=== PATIENT | female | born 1965 | race Caucasian/White ===

== ENCOUNTER 2022-07-30 07:30 | Inpatient (IN) ==
[~2022-07-30 07:30] MED LIST: ANCEF VIAL 1 GRAM ONE; HEPARIN SODIUM IN D5W 75,000 UNITS/1,500 ML BAG ONE; LR 1,000 ML IV 1,000 ML IV ONE; MARCAINE 0.5% ONE; NS 100 ML IV 100 ML ONE; PEPCID 20 MG VIAL ONE; VERSED ONE; ZOFRAN INJ 4 MG VIAL ONE
[2022-07-30] MEDS ORDERED: DIPRIVAN VIAL 20 ML ONE (07:43)
[2022-07-30] MEDS ORDERED: KETAMINE HCL ONE (07:44)
[2022-07-30] MEDS ORDERED: QUELICIN (OR ANECTINE) ONE (07:44)
[2022-07-30] MEDS ORDERED: ZEMURON 100 MG VIAL ONE (07:44)
[2022-07-30] MEDS ORDERED: FENTANYL VIAL INJ 250 mcg ONE (07:45)
[2022-07-30] MEDS ORDERED: ULTANE GAS IN ONE (07:46)
[2022-07-30] MEDS ORDERED: ROBINUL ONE ×2 (08:07→08:42)
[2022-07-30] MEDS ORDERED: NEO-SYNEPHRINE INJ ONE (08:14)
[2022-07-30] MEDS ORDERED: MAGNESIUM SULFATE 50% INJ VIAL ONE (08:14)
[2022-07-30] MEDS ORDERED: LR 1,000 ML IV 1,000 ML IV ONE (09:15)
[2022-07-30] MEDS ORDERED: VASOSTRICT INJ 20 UNITS VIAL ONE (09:16)
[2022-07-30] MEDS ORDERED: EPHEDRINE SULFATE INJ ONE (09:16)
[2022-07-30] MEDS ORDERED: HEPARIN SODIUM INJ 5000 UNITS ONE ×2 (09:36→10:43)
[2022-07-30 10:02] LABS: HEMATOCRIT 31.4 % (36.0-47.0); HEMOGLOBIN 10.4 g/dL (12.0-16.0)
[2022-07-30] MEDS ORDERED: NS 500 ML IV 500 ML IV ONE ×3 (10:06→13:34)
[2022-07-30] MEDS ORDERED: SOLU-Cortef INJ ONE (10:18)
[2022-07-30] MEDS ORDERED: BENADRYL INJ 50 MG VIAL ONE (10:22)
[2022-07-30] MEDS ORDERED: ANCEF VIAL 1 GRAM ONE (11:32)
[2022-07-30] MEDS ORDERED: NS 100 ML IV 100 ML ONE ×2 (11:32→14:56)
[2022-07-30] MEDS ORDERED: NS 1,000 ML IV 1,000 ML ONE (11:34)
[2022-07-30 11:38] LABS: BASOPHILS # (AUTO) 0.1 X10^3/uL (0.0-0.1); BASOPHILS % (AUTO) 0.3 % (0.2-1.0); EOSINOPHILS % (AUTO) 0.1 % (0.9-2.9); HEMATOCRIT 29.2 % (36.0-47.0); HEMOGLOBIN 9.5 g/dL (12.0-16.0); LYMPHOCYTES # (AUTO) 2.2 X10^3/uL (1.3-2.9); LYMPHOCYTES % (AUTO) 9.4 % (21.0-51.0); MEAN CORPUSCULAR HEMOGLOBIN 28.6 pg (27.0-34.0); MEAN CORPUSCULAR HGB CONC 32.6 g/dL (33.0-35.0); MEAN CORPUSCULAR VOLUME 87.7 fL (80.0-100.0); MEAN PLATELET VOLUME 7.6 fL (7.4-11.0); MONOCYTES # (AUTO) 0.5 x10^3/uL (0.3-0.8); MONOCYTES % (AUTO) 2.2 % (0.0-13.0); NEUTROPHILS # (AUTO) 20.3 x10^3/uL (2.2-4.8); RED BLOOD COUNT 3.33 X10^6/uL (3.5-5.4); RED CELL DISTRIBUTION WIDTH 26.3 % (11.6-16.5); WHITE BLOOD COUNT 23.1 X10^3/uL (3.6-10.0)
[2022-07-30] MEDS ORDERED: VERSED ONE ×3 (11:44→14:56)
[2022-07-30 11:50] LABS: CALCIUM 6.2 mg/dL (8.5-10.1); CARBON DIOXIDE 19.1 mmol/L (21-32); CREATININE 1.2 mg/dL (0.55-1.02)
[2022-07-30] MEDS: LEVOPHED 8 MG/250 ML IV *PREMIX 8 MG/250 ML PLAST..BAG IV PRN ×3 (12:00→21:22)
[2022-07-30] MEDS: NEO-SYNEPHRINE INJ 30 MG in NS 500 ML IV 500 ML IV PRN ×4 (12:00→21:09)
[2022-07-30 12:02] LABS: BAND NEUTROPHILS % 4 % (0-10); PLATELET MORPHOLOGY COMMENT NORMAL (NORMAL)
[2022-07-30 12:03] LABS: ANISOCYTOSIS 3+; BURR CELLS SLIGHT
[2022-07-30] MEDS ORDERED: ATIVAN INJ 2 MG VIAL IVP PRN (12:09)
[2022-07-30] MEDS ORDERED: BRIDION ONE (12:24)
[2022-07-30 12:57] LABS: INR 1.38 (0.8-1.3)
[2022-07-30 12:58] LABS: BASOPHILS % (AUTO) 0.2 % (0.2-1.0); EOSINOPHILS % (AUTO) 0.1 % (0.9-2.9); HEMATOCRIT 20.6 % (36.0-47.0); LYMPHOCYTES # (AUTO) 0.4 X10^3/uL (1.3-2.9); LYMPHOCYTES % (AUTO) 3.2 % (21.0-51.0); MEAN CORPUSCULAR HEMOGLOBIN 28.1 pg (27.0-34.0); MEAN CORPUSCULAR HGB CONC 32.5 g/dL (33.0-35.0); MEAN CORPUSCULAR VOLUME 86.5 fL (80.0-100.0); MEAN PLATELET VOLUME 7.7 fL (7.4-11.0); MONOCYTES # (AUTO) 0.4 x10^3/uL (0.3-0.8); MONOCYTES % (AUTO) 3.2 % (0.0-13.0); NEUTROPHILS # (AUTO) 11.3 x10^3/uL (2.2-4.8); NEUTROPHILS % (AUTO) 93.3 % (42.0-75.0); RED BLOOD COUNT 2.38 X10^6/uL (3.5-5.4); RED CELL DISTRIBUTION WIDTH 16.9 % (11.6-16.5)
[2022-07-30] MEDS ORDERED: NS 1,000 ML IV 1,000 ML IV ONE ×2 (13:02→16:17)
[2022-07-30 13:17] LABS: WHITE BLOOD COUNT 12.1 X10^3/uL (3.6-10.0)
--- NOTE | 2022-07-30 13:17 | RAD ---
HISTORYET TUBE PLACEMENTSTUDYCHEST, 1 [id number]/10/2023.TECHNIQUEPA or AP view of the chestFINDINGSET tube in good position. NG tube courses below the visualized field of view. Cardiac and mediastinal contours are within normal limits. Streaky linear opacities such as in the left upper and right lower lung consistent with subsegmental atelectasis. No definite pleural effusion or pneumothorax. Soft tissue attenuation limits evaluation.IMPRESSIONET tube in good position.Electronically signed by: Salvatore Sun (Jul 30, 2022 13:15:48)
[2022-07-30 13:18] LABS: HEMOGLOBIN 6.7 g/dL (12.0-16.0)
[2022-07-30 13:19] LABS: BURR CELLS PRESENT; PLATELET MORPHOLOGY COMMENT NORMAL (NORMAL); SCHISTOCYTES PRESENT
[2022-07-30] MEDS ORDERED: DILAUDID INJ ONE (13:26)
--- NOTE | 2022-07-30 13:26 | OR.IMMED ---
IMMEDIATE POST-OP NOTE Immediate Post-Op Note Pre-Op Diagnosis: 75 % stenosis of infrarenal aorta Post-Op Diagnosis: completely occluded infrarenal aorta over a very narrow segment Procedure: endovascular repair of infrarenal occlusion aorta complicated by rupture when it was balloon dilated , repaired with aortic endograft unilateral to right iliac artery and femoral femoral bypass. Description of Procedure: see operative summary Surgeon/Data Warehouse Specialist: Linh Findings: as above, post- procedure aortogram showed no further leak of the aorta Estimated Blood Loss: 50 cc f b/l open femoral artery exposures, guessing as to intra-abdominal loss probably 700 cc Complications: rupture of aorta requiring endovascular aortic graft and fem- fem bypass Progress Notes: To ICU , remains intubated for resuscitation Condition: Critical Final Diagnosis: s above
--- NOTE | 2022-07-30 13:49 | RAD ---
CHEST, 1 VIEWHISTORY: CENTRAL LINE PLACEMENTStudy: Single view of the chest.Comparison: 07/30/2022Findings:No change in the appearance of cardiopulmonary structures. A left central catheter terminates over the expected area of the SVC.IMPRESSION:1.No change in the appearance of cardiopulmonary structures.2. A left central catheter terminating over the expected area of the SVC.Electronically signed by: HIWOT SHEARER (Jul 30, 2022 13:48:31)
[2022-07-30] MEDS: VERSED 100 MG in NS 100 ML IV 80 ML IV PRN (15:20)
[2022-07-30] MEDS ORDERED: VERSED IV PREMIX IV PRN (16:04)
[2022-07-30] MEDS: LR 1,000 ML IV 1,000 ML IV SCH (16:30)
[2022-07-30 19:07] LABS: LYMPHOCYTES # (AUTO) 3.9 X10^3/uL (1.3-2.9); NEUTROPHILS # (AUTO) 25.9 x10^3/uL (2.2-4.8)
[2022-07-30 19:10] LABS: BASOPHILS # (AUTO) 0.2 X10^3/uL (0.0-0.1); BASOPHILS % (AUTO) 0.6 % (0.2-1.0); EOSINOPHILS % (AUTO) 0.1 % (0.9-2.9); HEMATOCRIT 38.3 % (36.0-47.0); HEMOGLOBIN 12.6 g/dL (12.0-16.0); LYMPHOCYTES % (AUTO) 12.1 % (21.0-51.0); MEAN CORPUSCULAR HEMOGLOBIN 29.3 pg (27.0-34.0); MONOCYTES # (AUTO) 2.3 x10^3/uL (0.3-0.8); MONOCYTES % (AUTO) 7.1 % (0.0-13.0); NEUTROPHILS % (AUTO) 80.1 % (42.0-75.0); RED BLOOD COUNT 4.31 X10^6/uL (3.5-5.4); RED CELL DISTRIBUTION WIDTH 22.9 % (11.6-16.5)
[2022-07-30 19:15] LABS: ALBUMIN 1.9 g/dL (3.4-5.0); CALCIUM 6.1 mg/dL (8.5-10.1); CARBON DIOXIDE 18.5 mmol/L (21-32); COR CA(FOR HYPOALB) 7.8 mg/dL (8.5-10.1); CREATININE 1.6 mg/dL (0.55-1.02); TOTAL PROTEIN 3.9 g/dL (6.4-8.2)
[2022-07-30 19:26] LABS: WHITE BLOOD COUNT 32.3 X10^3/uL (3.6-10.0)
[2022-07-30 19:28] LABS: ANISOCYTOSIS 2+; GIANT PLATELET FEW; PLATELET MORPHOLOGY COMMENT ABNORMAL (NORMAL)
[2022-07-30 19:29] LABS: BURR CELLS SLIGHT; SCHISTOCYTES SLIGHT
[2022-07-30 19:30] LABS: BAND NEUTROPHILS % 7 % (0-10); METAMYELOCYTES % 1; MYELOCYTES % 1
[2022-07-30] MEDS: ANCEF VIAL 1 GRAM IVP SCH (21:24)
[2022-07-30] MEDS ORDERED: DOPAMINE IV PREMIX 400 MG/250 ML 400 MG/250 ML BAG IV PRN (21:56)
[2022-07-30] MEDS: PRECEDEX IV PRN (22:40)
[2022-07-30] MEDS: PRECEDEX 400 MCG/100 ML *PREMIX 400 MCG/100 ML INFUS..BTL IV ONE ×2 (22:40→23:13)
[2022-07-30] MEDS: NS IV PRN (22:40)
[2022-07-31] MEDS: LR 1,000 ML IV 1,000 ML IV SCH ×2 (00:17→07:30)
[2022-07-31] MEDS: NEO-SYNEPHRINE INJ 30 MG in NS 500 ML IV 500 ML IV PRN ×5 (00:45→18:13)
[2022-07-31] MEDS: VERSED 100 MG in NS 100 ML IV 80 ML IV PRN ×2 (01:48→11:23)
[2022-07-31] MEDS: LEVOPHED 8 MG/250 ML IV *PREMIX 8 MG/250 ML PLAST..BAG IV PRN ×4 (01:49→18:12)
[2022-07-31 05:01] LABS: BASOPHILS # (AUTO) 0.1 X10^3/uL (0.0-0.1); BASOPHILS % (AUTO) 0.5 % (0.2-1.0); EOSINOPHILS % (AUTO) 0.1 % (0.9-2.9); HEMATOCRIT 36.7 % (36.0-47.0); HEMOGLOBIN 12.3 g/dL (12.0-16.0); LYMPHOCYTES # (AUTO) 4.4 X10^3/uL (1.3-2.9); LYMPHOCYTES % (AUTO) 17.4 % (21.0-51.0); MEAN CORPUSCULAR HGB CONC 33.5 g/dL (33.0-35.0); MEAN CORPUSCULAR VOLUME 86.7 fL (80.0-100.0); MEAN PLATELET VOLUME 8.8 fL (7.4-11.0); MONOCYTES # (AUTO) 1.8 x10^3/uL (0.3-0.8); MONOCYTES % (AUTO) 7.2 % (0.0-13.0); NEUTROPHILS % (AUTO) 74.8 % (42.0-75.0); RED BLOOD COUNT 4.23 X10^6/uL (3.5-5.4); RED CELL DISTRIBUTION WIDTH 22.5 % (11.6-16.5); WHITE BLOOD COUNT 25.4 X10^3/uL (3.6-10.0)
[2022-07-31] MEDS: ANCEF VIAL 1 GRAM IVP SCH ×3 (05:13→21:36)
[2022-07-31 05:55] LABS: BAND NEUTROPHILS % 5 % (0-10); METAMYELOCYTES % 1
[2022-07-31 05:56] LABS: ANISOCYTOSIS 2+; BURR CELLS SLIGHT; GIANT PLATELET RARE; PLATELET MORPHOLOGY COMMENT ABNORMAL (NORMAL); SCHISTOCYTES SLIGHT; SMUDGE CELLS FEW
[2022-07-31] MEDS ORDERED: LASIX IVP ONE (06:07)
[2022-07-31] MEDS ORDERED: LEVOPHED INJ (VIAL) ONE (06:19)
[2022-07-31] MEDS ORDERED: D5W 250 ML IV 250 ML IV ONE (06:19)
[2022-07-31] MEDS ORDERED: LASIX ONE (06:31)
[2022-07-31] MEDS ORDERED: NS 100 ML IV 100 ML ONE ×2 (06:31→13:18)
[2022-07-31 06:52] LABS: ALBUMIN 1.8 g/dL (3.4-5.0); CARBON DIOXIDE 16.4 mmol/L (21-32); COR CA(FOR HYPOALB) 7.8 mg/dL (8.5-10.1); CREATININE 1.96 mg/dL (0.55-1.02); MAGNESIUM 1.7 mg/dL (2.0-2.9)
[2022-07-31] MEDS: DILAUDID INJ IVP PRN ×2 (07:22→16:07)
[2022-07-31] MEDS ORDERED: NS 1,000 ML IV 1,000 ML ONE (08:07)
[2022-07-31] MEDS: NS 1,000 ML IV 1,000 ML IV SCH ×3 (08:08→22:17)
[2022-07-31] MEDS: NS IV PRN (08:10)
[2022-07-31] MEDS: PRECEDEX IV PRN (08:10)
[2022-07-31] MEDS ORDERED: DUKE'S Magic Mouthwash (nyst/dex/ben/doxyc) MT PRN (08:34)
[2022-07-31] MEDS ORDERED: LOVENOX INJ 40 MG SYR SC SCH (09:00)
[2022-07-31 09:20] LABS: ABG BASE EXCESS -12.7 mmol/L (-2.0-2.0)
[2022-07-31 09:21] LABS: ABG HCO3 13.8 mmol/L (22-26)
[2022-07-31] MEDS: LACRI-LUBE S.O.P. AFFEYE SCH ×2 (09:24→21:36)
[2022-07-31] MEDS ORDERED: KAYEXALATE SUSP PO NR (10:00)
[2022-07-31] MEDS ORDERED: PRECEDEX 400 MCG/100 ML *PREMIX 400 MCG/100 ML INFUS..BTL IV PRN (11:18)
--- NOTE | 2022-07-31 11:33 | RAD ---
HISTORYNG TUBE PLACEMENT HTN, GB, , CARPAL TUNNEL, HERNIA REPAIR, GYNO SX, VASCULAR SXSTUDYKUBCOMPARISONNone availableFINDINGSThere is a nasogastric projecting in the left upper quadrant in the stomach body. Status post cholecystectomy. The right base is clear. Decrease air in the abdomen.IMPRESSIONNasogastric tube in the stomach body.Electronically signed by: Pricila Montes De Oca (Jul 31, 2022 11:31:59)
--- NOTE | 2022-07-31 11:35 | RAD ---
HISTORYVENT PATIENT, OCCLUDED INFRARENAL AORTA RUPTURE DURING SXSTUDYCHEST, 1 [id number]/16/2023.TECHNIQUEPA or AP view of the chestFINDINGSET tube in good position. NG tube terminates in the stomach but the side port is proximal to the GE junction. Cardiac and mediastinal contours are within normal limits. Worsened bibasilar patchy opacities. No definite pleural effusion or pneumothorax. Soft tissue attenuation limits evaluation.IMPRESSIONRecommend 5 cm advancement of NG tube. Worsened patchy in the lung bases may represent atelectasis or aspiration.Electronically signed by: Salvatore Sun (Jul 31, 2022 11:34:36)
[2022-07-31 12:15] LABS: BASOPHILS # (AUTO) 0.1 X10^3/uL (0.0-0.1); BASOPHILS % (AUTO) 0.5 % (0.2-1.0); HEMOGLOBIN 9.8 g/dL (12.0-16.0); LYMPHOCYTES % (AUTO) 23.1 % (21.0-51.0); MEAN CORPUSCULAR HEMOGLOBIN 29.2 pg (27.0-34.0); MEAN CORPUSCULAR HGB CONC 33.7 g/dL (33.0-35.0); MEAN CORPUSCULAR VOLUME 86.7 fL (80.0-100.0); MEAN PLATELET VOLUME 8.3 fL (7.4-11.0); MONOCYTES # (AUTO) 1.1 x10^3/uL (0.3-0.8); MONOCYTES % (AUTO) 4.9 % (0.0-13.0); NEUTROPHILS # (AUTO) 15.4 x10^3/uL (2.2-4.8); NEUTROPHILS % (AUTO) 71.5 % (42.0-75.0); RED BLOOD COUNT 3.35 X10^6/uL (3.5-5.4); RED CELL DISTRIBUTION WIDTH 22.6 % (11.6-16.5); WHITE BLOOD COUNT 21.5 X10^3/uL (3.6-10.0)
[2022-07-31 12:31] LABS: ALBUMIN 1.5 g/dL (3.4-5.0); COR CA(FOR HYPOALB) 7.8 mg/dL (8.5-10.1); CREATININE 2.34 mg/dL (0.55-1.02); TOTAL PROTEIN 3.7 g/dL (6.4-8.2)
[2022-07-31 12:40] LABS: CALCIUM 5.8 mg/dL (8.5-10.1)
[2022-07-31 12:41] LABS: CARBON DIOXIDE 14.8 mmol/L (21-32)
[2022-07-31] MEDS ORDERED: SODIUM BICARBONATE 8.4% INJ ADULT IVP ONE ×3 (12:43→18:54)
[2022-07-31] MEDS ORDERED: CALCIUM GLUCONATE 10% 1 G in NS 100 ML IV 100 ML IV ONE ×2 (12:44→18:55)
[2022-07-31 12:56] LABS: BAND NEUTROPHILS % 4 % (0-10); PLATELET MORPHOLOGY COMMENT NORMAL (NORMAL)
[2022-07-31 12:57] LABS: ANISOCYTOSIS 2+
[2022-07-31] MEDS ORDERED: CALCIUM GLUCONATE 10% 1 G in NS 100 ML IV 100 ML IV NR (13:00)
[2022-07-31 13:43] LABS: ABG BASE EXCESS -6.9 mmol/L (-2.0-2.0)
[2022-07-31 13:44] LABS: ABG HCO3 17.7 mmol/L (22-26)
[2022-07-31 15:33] VITALS: BMI 49.1
[2022-07-31] MEDS ORDERED: NARCAN INJ ONE (16:27)
[2022-07-31 16:59] LABS: BASOPHILS # (AUTO) 0.1 X10^3/uL (0.0-0.1); BASOPHILS % (AUTO) 0.3 % (0.2-1.0); EOSINOPHILS % (AUTO) 0.1 % (0.9-2.9); HEMATOCRIT 24.4 % (36.0-47.0); HEMOGLOBIN 7.9 g/dL (12.0-16.0); LYMPHOCYTES # (AUTO) 7.5 X10^3/uL (1.3-2.9); LYMPHOCYTES % (AUTO) 32.1 % (21.0-51.0); MEAN CORPUSCULAR HEMOGLOBIN 29.4 pg (27.0-34.0); MEAN CORPUSCULAR HGB CONC 32.4 g/dL (33.0-35.0); MEAN CORPUSCULAR VOLUME 90.7 fL (80.0-100.0); MEAN PLATELET VOLUME 8.1 fL (7.4-11.0); MONOCYTES # (AUTO) 0.9 x10^3/uL (0.3-0.8); MONOCYTES % (AUTO) 3.8 % (0.0-13.0); NEUTROPHILS # (AUTO) 14.9 x10^3/uL (2.2-4.8); NEUTROPHILS % (AUTO) 63.7 % (42.0-75.0); RED BLOOD COUNT 2.69 X10^6/uL (3.5-5.4); RED CELL DISTRIBUTION WIDTH 22.4 % (11.6-16.5); WHITE BLOOD COUNT 23.4 X10^3/uL (3.6-10.0)
[2022-07-31 17:14] LABS: ABG BASE EXCESS -21.2 mmol/L (-2.0-2.0)
[2022-07-31 17:15] LABS: ABG HCO3 9.6 mmol/L (22-26)
[2022-07-31] MEDS ORDERED: ADRENALINE CHL INJ IVP ONE ×4 (17:18→17:34)
[2022-07-31] MEDS ORDERED: ATROPINE SULFATE ABBOJECT IVP ONE (17:23)
--- NOTE | 2022-07-31 17:23 | RAD ---
HISTORYET TUBE PLACEMENTSTUDYCHEST, 1 VIEWCOMPARISONFebruary 2022TECHNIQUEChest radiographic imaging, AP portable projection, 1 imageFINDINGSNo cardiomegaly.No focal airspace disease.No pleural effusion.Mild diffuse increased interstitial markings.No pneumothorax.No acute osseous abnormality.Endotracheal tube tip overlies the mid trachea.Esophagogastric tube coursing in expected location into the stomach with the distal tip not imaged.Left subclavian central line tip overlies the mid SVC; oriented obliquely at the distal and of the left innominate vein.IMPRESSION1. No significant interval acute cardiopulmonary changes.2. Support apparatus as described above.Electronically signed by: Cosmo Resendiz (Jul 31, 2022 17:22:34)
[2022-07-31] MEDS ORDERED: SODIUM BICARBONATE 8.4% INJ ADULT ONE (17:25)
[2022-07-31] MEDS ORDERED: NARCAN INJ IVP ONE (17:32)
[2022-07-31 17:41] LABS: ANISOCYTOSIS 2+; BAND NEUTROPHILS % 3 % (0-10); PLATELET MORPHOLOGY COMMENT NORMAL (NORMAL)
[2022-07-31 18:36] LABS: BLOOD UREA NITROGEN 26 mg/dL (7-18); CHLORIDE 111 mmol/L (98-107); COR NA(FOR HYPERGLY) 147 mmol/L (136-145); CREATININE 2.77 mg/dL (0.55-1.02); SODIUM 144 mmol/L (136-145); eGFR NON BLACK RACES 19 (>60)
[2022-07-31 18:37] LABS: ALANINE AMINOTRANSFERASE 1397 Units/L (12-78)
[2022-07-31 18:38] LABS: ASPARTATE AMINO TRANSFERASE 2302 Units/L (15-37)
[2022-07-31 18:39] LABS: ALBUMIN 1.2 g/dL (3.4-5.0); ALKALINE PHOSPHATASE 59 Units/L (46-116); COR CA(FOR HYPOALB) 7.8 mg/dL (8.5-10.1); TOTAL PROTEIN 2.9 g/dL (6.4-8.2)
[2022-07-31 18:51] LABS: CALCIUM 5.6 mg/dL (8.5-10.1); CARBON DIOXIDE 11.1 mmol/L (21-32)
[2022-07-31 18:54] LABS: CREATINE KINASE > 20000 Units/L (26-192)
[2022-07-31] MEDS ORDERED: TYLENOL SUPP 650 MG ONE (20:02)
[2022-07-31] MEDS: TYLENOL SUPP 650 MG PR PRN (20:06)
--- NOTE | 2022-07-31 20:50 | NOTE.SOAP ---
Soap Note Note for Day of Date of Exam: 07/31/22 Subjective Data Subjective Data: This 56 year old female is status post endo-vascular repair of a completely occluded aorta over a small segment in the infrarenal region yesterday. Complicated by leak from aorta after balloon dilatation requiring repair with a covered aortic unilateral right iliac stent graft and femoral- femoral bypass. Post -op she required pressor agents of phenylephrine and levophed last night. She remained on the ventilator on 40%FIO2 and required a total of 4 units of blood. She was sedated with Precedex and Versed as intravenous drips. This morning hemoglobin was stable at 12.8 H. Her blood pressure was improving and we were able to wean the pressor agents down. We weaned off the Precedex and Versed . She was later weaned down on the ventilator and was placed on CPAP for over 1 hour. She had a good blood gas with adequate oxgenation on 40% oxygen and no CO2 retention. She had a negative inspiratory force of -40. She was extubated and remained stable and continued to be weaned from her pressor agents. She was making adequate urine on a dopamine drip of 3 mcg/kg/min . She had no distress or shortness of breath. The nurses were moving her to change her bed linens because of blood from yesterday and she abruptly stopped breathing requiring resuscitation according to ACLS protocol.. Her rhythm was one of asystole. She required epinephrine and atropine and chest compressions and regained a rhythm and a blood pressure of greater than 180. Her family has requested the patient's tranfer to a higher level of care. Post arrest she is on 100% oxygen.Her PO2 is approximately 90 and the blood pressure is 112 / 60 on levophed and phenylephrine. Creatinine has risen to 2.7 and HgB dropped to 7.9 and she is going to receive two units of blood. Objective Data Temperature: 101.2 F Pulse Rate: 112 Respiratory Rate: 36 Blood Pressure: 112/75 O2 Sat by Pulse Oximetry: 87 Objective Data: On 100 % oxygen. History and exam as above. CXR show adequate aeration with no infitrates and all lines and devices appropriate . Poor urine output now Abdomen distended. Ng tube in place . Hgb=7.9. ,plt=44k, Cr=2.77, CO2= 11.1, K+=6.1 , WBC=23.4 Assessment Assessment: Endovascular repair of 75 % infrarenal aortic occlusion over a small area was found to be 100% occluded at time of procedure( Lexiscan stress test showed 70% EF and no reversible ischemia ) complicated by leak and repair with aortic unilateral covered graft and femoral - femoral bypass),Intubated overnight and extubated well with acute respiratory arrest . Probable retroperirtoneal hematoma . Supported with pressor agents . Plan Plan: Transfer to a higher level of care.
[2022-07-31] MEDS: DOPAMINE IV PREMIX 400 MG/250 ML 400 MG/250 ML BAG IV SCH (20:54)
--- NOTE | 2022-07-31 21:03 | NOTE.SOAP ---
Soap Note Note for Day of Date of Exam: 07/30/22 Subjective Data Subjective Data: Earlier today the patient had endovascular repair of an occluded aorta complicated by a rupture of the aorta treated with endovascular covered grafts of the aorta and right iliac artery and femoral femoral bypass. Patient remains intubated and has received 2 units of PRBCs and is to receive 2 more. On Phenylephrine and Levophed drips. Poor urine output. Objective Data Objective Data: See nurese notes . Both legs cool and mottled . Abdomen distended. Assessment Assessment: Repair of occluded infrarenal aorta over a small segment with graft complicated by leak after balloon dilatation treated with endovascular repair of the aorta with a [employer] Endurant stent graft aorto- uniiliac to the right iliac artery and femoral - femoral bypass. Critical but stable condition. Continue pressors, give 2 more units of PRBCS . On ventilator. Will sedate and re- assess in AM for possible extubation. Discussed with her family in person. Plan Plan: as above
[2022-07-31] MEDS ORDERED: NS 250 ML IV 250 ML IV ONE (22:04)
--- NOTE | 2022-07-31 22:08 | W.DIS.FURT ---
Summary of Discharge Discharge Summary of Date Date of Exam: 07/31/22 Admission Date Date of Admission: 07/30/22 Admission Diagnosis Hospital Course: 56 year old female with a significant issue of tobacco abuse who presented with difficulty walking and had no palpable lower extremity pulses. CT angiogram was done with bilateral lower extremity run-off at that time showing 75 % stenosis of the infrarenal aorta. Lexiscan stress test showed no coronary ischemia and ejection fraction of 70 % She was taken to the OR on 07/30/2022 for planned endovascular treatment of this infrarenal aortic stenosis . Aortoogram on table showed complete occlusion of the infrarenal aorta over a short segment . We were able to put a Medtronic stent graft cuff across the area of obstruction and on dilating it the post procedure aortogram showed a leak from the aorta. This was repaired with a Medtronic endovascular aoric -unilateral stent graft to the right iliac artery and femoral- femoral bypass. Aortic leak was controlled with an aortic balloon . Aortogram after placement of the graft and at the end of the case showed no further leaking from the aorta. She was taken to the ICU where she was placed on both a phenylephrine and levophed drip for hypotension.She remained on the ventilator overnight and was sedated with IV Versed drip and IV Precedex drip. She stabilized by the next morning with a stable hemoglobin of 12.8., She had received a total of 4 units PRBCs. We were able to wean her pressor agents. We weaned the Precedex and Versed drips to off and weaned her ventilator. She was on CPAP for over 1 hour with no problems and respirtory rate less than 20 . Good oxygenation on 40 % FIO2 and a negative inspiratory force of -40. She was extubated and was doing well. We continued to wean her pressor agents. She remained stable with no shortness of breath or dyspnea. She was following commands and when the nurses were changing her bed sheets she abruptly stopped breathing requiring resuscitation with ACLS protocols carried out with chest compressions, asystole treated with atropine and epinephrine. She regained a rhythm and a blood pressure > 180 mmHg . Her hemoglobin dropped to 7.9. She is being transferred to [facility] for higher level of care. Once there will probably need CT of head , chest and abdomen. She is to receive 2 more units PRBCs. She had mottling of her legs presumably from the pressor agents . She remains on the 2 pressor agents. She just spiked a fever to 101.2. Is on Ancef at this time . Vital Signs: Vital Signs (72 hours) 07/31/22 20:49 07/30/22 06:55 07/30/22 06:43 Temperature 101.2 F H 98.1 F Pulse Rate 112 H 76 Pulse Rate [Left Brachial] Respiratory Rate 36 H 18 Blood Pressure 112/75 197/82 Blood Pressure [Right Arm] O2 Sat by Pulse Oximetry 87 L 98 Oxygen Delivery Method Room Air Room Air FIO2% 07/30/22 12:05 07/30/22 13:00 07/30/22 14:10 Temperature 98.3 F 98.8 F Pulse Rate Pulse Rate [Left Brachial] 108 H 94 H Respiratory Rate Blood Pressure Blood Pressure [Right Arm] O2 Sat by Pulse Oximetry 100 100 Oxygen Delivery Method Mechanical Ventilator Mechanical Ventilator Mechanical Ventilator FIO2% 60 60 50 07/30/22 15:00 07/30/22 16:30 07/30/22 17:00 Temperature 99.3 F 98.9 F 97.3 F L Pulse Rate Pulse Rate [Left Brachial] 103 H 100 H 100 H Respiratory Rate Blood Pressure Blood Pressure [Right Arm] 96/48 95/52 89/58 O2 Sat by Pulse Oximetry 100 100 100 Oxygen Delivery Method Mechanical Ventilator Mechanical Ventilator Mechanical Ventilator FIO2% 50 40 40 07/30/22 18:00 07/30/22 18:30 07/30/22 18:54 Temperature Pulse Rate Pulse Rate [Left Brachial] 96 H 97 H 99 H Respiratory Rate 12 12 Blood Pressure Blood Pressure [Right Arm] 85/65 91/67 100/72 O2 Sat by Pulse Oximetry 100 100 100 Oxygen Delivery Method Mechanical Ventilator Mechanical Ventilator Mechanical Ventilator FIO2% 40 07/30/22 19:00 07/30/22 19:15 07/30/22 19:30 Temperature Pulse Rate Pulse Rate [Left Brachial] 100 H 101 H 101 H Respiratory Rate 12 12 12 Blood Pressure Blood Pressure [Right Arm] 96/65 89/67 93/72 O2 Sat by Pulse Oximetry 100 100 100 Oxygen Delivery Method Mechanical Ventilator Mechanical Ventilator Mechanical Ventilator FIO2% 07/30/22 19:45 07/30/22 20:01 07/30/22 20:23 Temperature 98.7 F Pulse Rate Pulse Rate [Left Brachial] 101 H 101 H 100 H Respiratory Rate 12 12 12 Blood Pressure Blood Pressure [Right Arm] 96/74 133/80 117/78 O2 Sat by Pulse Oximetry 100 100 100 Oxygen Delivery Method Mechanical Ventilator Mechanical Ventilator Mechanical Ventilator FIO2% 40 07/30/22 20:31 07/30/22 20:46 07/30/22 20:56 Temperature Pulse Rate Pulse Rate [Left Brachial] 100 H 101 H 101 H Respiratory Rate 22 12 12 Blood Pressure Blood Pressure [Right Arm] 114/57 104/43 123/54 O2 Sat by Pulse Oximetry 99 100 100 Oxygen Delivery Method Mechanical Ventilator Mechanical Ventilator Mechanical Ventilator FIO2% 40 40 40 07/30/22 20:58 07/30/22 20:59 07/30/22 19:00 Temperature Pulse Rate Pulse Rate [Left Brachial] 101 H 101 H Respiratory Rate 12 12 Blood Pressure Blood Pressure [Right Arm] 101/53 105/59 O2 Sat by Pulse Oximetry 100 100 Oxygen Delivery Method Mechanical Ventilator Mechanical Ventilator FIO2% 40 07/30/22 21:35 07/30/22 21:37 07/30/22 21:45 Temperature Pulse Rate Pulse Rate [Left Brachial] 98 H 98 H 97 H Respiratory Rate 12 12 12 Blood Pressure Blood Pressure [Right Arm] 91/56 112/56 83/51 O2 Sat by Pulse Oximetry 98 99 99 Oxygen Delivery Method Mechanical Ventilator Mechanical Ventilator Mechanical Ventilator FIO2% 40 40 07/30/22 22:00 07/30/22 22:15 07/30/22 22:30 Temperature Pulse Rate Pulse Rate [Left Brachial] 96 H 94 H 126 H Respiratory Rate 12 12 12 Blood Pressure Blood Pressure [Right Arm] 96/58 99/63 81/52 O2 Sat by Pulse Oximetry 98 98 98 Oxygen Delivery Method Mechanical Ventilator Mechanical Ventilator Mechanical Ventilator FIO2% 40 07/30/22 22:40 07/30/22 22:54 07/30/22 23:00 Temperature Pulse Rate Pulse Rate [Left Brachial] 128 H 128 H 129 H Respiratory Rate 12 12 12 Blood Pressure Blood Pressure [Right Arm] 120/77 110/53 101/66 O2 Sat by Pulse Oximetry 96 98 98 Oxygen Delivery Method Mechanical Ventilator Mechanical Ventilator Mechanical Ventilator FIO2% 40 40 40 07/30/22 23:16 07/30/22 23:31 07/30/22 19:00 Temperature Pulse Rate Pulse Rate [Left Brachial] 132 H 133 H Respiratory Rate 12 12 Blood Pressure Blood Pressure [Right Arm] 94/48 89/58 O2 Sat by Pulse Oximetry 99 99 Oxygen Delivery Method Mechanical Ventilator Mechanical Ventilator Mechanical Ventilator FIO2% 40 40 40 07/30/22 23:45 07/31/22 00:09 07/31/22 00:31 Temperature Pulse Rate Pulse Rate [Left Brachial] 133 H 130 H 130 H Respiratory Rate 12 12 20 Blood Pressure Blood Pressure [Right Arm] 93/68 122/95 136/70 O2 Sat by Pulse Oximetry 98 98 98 Oxygen Delivery Method Mechanical Ventilator Mechanical Ventilator Mechanical Ventilator FIO2% 40 40 40 07/31/22 00:54 07/31/22 01:00 07/31/22 01:25 Temperature Pulse Rate Pulse Rate [Left Brachial] 129 H 129 H 128 H Respiratory Rate 12 12 12 Blood Pressure Blood Pressure [Right Arm] 118/41 75/50 100/63 O2 Sat by Pulse Oximetry 99 99 99 Oxygen Delivery Method Mechanical Ventilator Mechanical Ventilator Mechanical Ventilator FIO2% 40 40 40 07/31/22 02:00 07/31/22 02:15 07/31/22 02:45 Temperature Pulse Rate Pulse Rate [Left Brachial] 127 H 127 H 126 H Respiratory Rate 22 22 22 Blood Pressure Blood Pressure [Right Arm] 114/91 84/52 105/77 O2 Sat by Pulse Oximetry 100 99 99 Oxygen Delivery Method Mechanical Ventilator Mechanical Ventilator Mechanical Ventilator FIO2% 40 40 40 07/31/22 03:00 07/31/22 03:30 07/31/22 04:00 Temperature 97.1 F L Pulse Rate Pulse Rate [Left Brachial] 126 H 125 H 124 H Respiratory Rate 22 20 22 Blood Pressure Blood Pressure [Right Arm] 97/46 73/50 115/58 O2 Sat by Pulse Oximetry 98 98 98 Oxygen Delivery Method Mechanical Ventilator Mechanical Ventilator Mechanical Ventilator FIO2% 40 40 07/31/22 03:15 07/31/22 03:45 07/31/22 04:15 Temperature Pulse Rate Pulse Rate [Left Brachial] 126 H 124 H 123 H Respiratory Rate 20 22 22 Blood Pressure Blood Pressure [Right Arm] 124/68 111/73 99/57 O2 Sat by Pulse Oximetry 98 97 98 Oxygen Delivery Method Mechanical Ventilator Mechanical Ventilator Mechanical Ventilator FIO2% 40 40 40 07/31/22 04:30 07/31/22 04:45 07/31/22 05:00 Temperature Pulse Rate Pulse Rate [Left Brachial] 124 H 124 H 124 H Respiratory Rate 22 22 22 Blood Pressure Blood Pressure [Right Arm] 108/60 132/73 144/58 O2 Sat by Pulse Oximetry 99 99 98 Oxygen Delivery Method Mechanical Ventilator Mechanical Ventilator Mechanical Ventilator FIO2% 40 40 07/31/22 05:15 07/31/22 05:30 07/31/22 06:00 Temperature Pulse Rate Pulse Rate [Left Brachial] 124 H 123 H 123 H Respiratory Rate 22 22 22 Blood Pressure Blood Pressure [Right Arm] 98/61 O2 Sat by Pulse Oximetry 98 98 Oxygen Delivery Method Mechanical Ventilator Mechanical Ventilator Mechanical Ventilator FIO2% 40 40 40 07/31/22 05:45 07/31/22 07:22 07/31/22 07:00 Temperature Pulse Rate Pulse Rate [Left Brachial] 123 H Respiratory Rate 22 22 Blood Pressure Blood Pressure [Right Arm] O2 Sat by Pulse Oximetry 99 Oxygen Delivery Method Mechanical Ventilator FIO2% 40 40 07/31/22 07:00 07/31/22 07:00 07/31/22 07:52 Temperature Pulse Rate Pulse Rate [Left Brachial] 121 H Respiratory Rate 22 22 Blood Pressure Blood Pressure [Right Arm] 121/59 O2 Sat by Pulse Oximetry 95 Oxygen Delivery Method Mechanical Ventilator Mechanical Ventilator FIO2% 40 40 07/31/22 08:00 07/31/22 09:00 07/31/22 09:30 Temperature 98.2 F Pulse Rate Pulse Rate [Left Brachial] 116 H 116 H 115 H Respiratory Rate 21 21 29 H Blood Pressure Blood Pressure [Right Arm] 106/58 O2 Sat by Pulse Oximetry 95 92 L 96 Oxygen Delivery Method Mechanical Ventilator Mechanical Ventilator Mechanical Ventilator FIO2% 40 40 40 07/31/22 08:15 07/31/22 10:00 07/31/22 10:00 Temperature Pulse Rate Pulse Rate [Left Brachial] 115 H Respiratory Rate 29 H 29 H Blood Pressure Blood Pressure [Right Arm] 70/43 O2 Sat by Pulse Oximetry 96 Oxygen Delivery Method Mechanical Ventilator Mechanical Ventilator FIO2% 40 40 40 07/31/22 11:00 07/31/22 12:00 07/31/22 12:00 Temperature 98.3 F Pulse Rate Pulse Rate [Left Brachial] 113 H 110 H Respiratory Rate 29 H 32 H 31 H Blood Pressure Blood Pressure [Right Arm] 116/57 102/70 O2 Sat by Pulse Oximetry 96 95 Oxygen Delivery Method Mechanical Ventilator Mechanical Ventilator FIO2% 40 40 40 07/31/22 13:00 07/31/22 14:00 07/31/22 13:12 Temperature Pulse Rate Pulse Rate [Left Brachial] 116 H 109 H Respiratory Rate 35 H 36 H Blood Pressure Blood Pressure [Right Arm] 129/52 111/55 129/52 O2 Sat by Pulse Oximetry 90 L 90 L Oxygen Delivery Method CPAP Nasal Cannula FIO2% 07/31/22 13:18 07/31/22 13:28 07/31/22 13:38 Temperature Pulse Rate Pulse Rate [Left Brachial] Respiratory Rate Blood Pressure Blood Pressure [Right Arm] 115/56 104/57 89/50 O2 Sat by Pulse Oximetry Oxygen Delivery Method FIO2% 07/31/22 13:43 07/31/22 15:00 07/31/22 16:00 Temperature 99.6 F Pulse Rate Pulse Rate [Left Brachial] 113 H 114 H Respiratory Rate 45 H 44 H Blood Pressure Blood Pressure [Right Arm] 71/39 138/65 144/83 O2 Sat by Pulse Oximetry 91 L 91 L Oxygen Delivery Method Nasal Cannula Nasal Cannula FIO2% 07/31/22 16:07 07/31/22 13:57 07/31/22 14:00 Temperature Pulse Rate 105 H 106 H Pulse Rate [Left Brachial] Respiratory Rate 40 H 38 H 34 H Blood Pressure Blood Pressure [Right Arm] O2 Sat by Pulse Oximetry 95 95 Oxygen Delivery Method FIO2% 07/31/22 14:04 07/31/22 14:04 07/31/22 14:15 Temperature Pulse Rate 106 H 109 H Pulse Rate [Left Brachial] Respiratory Rate 39 H 39 H Blood Pressure 111/55 Blood Pressure [Right Arm] O2 Sat by Pulse Oximetry 94 L 93 L Oxygen Delivery Method FIO2% 07/31/22 14:30 07/31/22 14:45 07/31/22 14:45 Temperature Pulse Rate 110 H 111 H Pulse Rate [Left Brachial] Respiratory Rate 42 H 37 H Blood Pressure 82/45 Blood Pressure [Right Arm] O2 Sat by Pulse Oximetry 93 L 93 L Oxygen Delivery Method FIO2% 07/31/22 15:00 07/31/22 15:00 07/31/22 15:15 Temperature Pulse Rate 112 H 112 H Pulse Rate [Left Brachial] Respiratory Rate 44 H 40 H Blood Pressure 72/50 Blood Pressure [Right Arm] O2 Sat by Pulse Oximetry 89 L 92 L Oxygen Delivery Method FIO2% 07/31/22 15:30 07/31/22 15:31 07/31/22 15:31 Temperature Pulse Rate 113 H 113 H Pulse Rate [Left Brachial] Respiratory Rate 46 H 46 H Blood Pressure 138/65 Blood Pressure [Right Arm] O2 Sat by Pulse Oximetry 79 L 88 L Oxygen Delivery Method FIO2% 07/31/22 15:45 07/31/22 15:46 07/31/22 15:46 Temperature Pulse Rate 114 H 114 H Pulse Rate [Left Brachial] Respiratory Rate 44 H 45 H Blood Pressure 144/83 Blood Pressure [Right Arm] O2 Sat by Pulse Oximetry 91 L 92 L Oxygen Delivery Method FIO2% 07/31/22 16:00 07/31/22 16:06 07/31/22 16:06 Temperature Pulse Rate 114 H 114 H Pulse Rate [Left Brachial] Respiratory Rate 52 H 46 H Blood Pressure 120/85 Blood Pressure [Right Arm] O2 Sat by Pulse Oximetry 92 L 94 L Oxygen Delivery Method FIO2% 07/31/22 16:15 07/31/22 16:30 07/31/22 16:32 Temperature Pulse Rate 114 H 0 L Pulse Rate [Left Brachial] Respiratory Rate 41 H Blood Pressure 82/52 Blood Pressure [Right Arm] O2 Sat by Pulse Oximetry 92 L Oxygen Delivery Method FIO2% 07/31/22 16:32 07/31/22 16:33 07/31/22 16:33 Temperature Pulse Rate 0 L 0 L Pulse Rate [Left Brachial] Respiratory Rate Blood Pressure 85/43 Blood Pressure [Right Arm] O2 Sat by Pulse Oximetry Oxygen Delivery Method FIO2% 07/31/22 16:36 07/31/22 16:36 07/31/22 16:41 Temperature Pulse Rate 0 L 0 L Pulse Rate [Left Brachial] Respiratory Rate Blood Pressure 190/114 Blood Pressure [Right Arm] O2 Sat by Pulse Oximetry 84 L Oxygen Delivery Method FIO2% 07/31/22 16:41 07/31/22 16:42 07/31/22 16:43 Temperature Pulse Rate 0 L Pulse Rate [Left Brachial] Respiratory Rate Blood Pressure 178/110 185/107 Blood Pressure [Right Arm] O2 Sat by Pulse Oximetry Oxygen Delivery Method FIO2% 07/31/22 16:45 07/31/22 16:46 07/31/22 16:46 Temperature Pulse Rate 130 H 126 H Pulse Rate [Left Brachial] Respiratory Rate 16 16 Blood Pressure 175/70 Blood Pressure [Right Arm] O2 Sat by Pulse Oximetry Oxygen Delivery Method FIO2% 07/31/22 16:49 07/31/22 16:49 07/31/22 16:52 Temperature Pulse Rate 123 H 119 H Pulse Rate [Left Brachial] Respiratory Rate 21 19 Blood Pressure 165/71 Blood Pressure [Right Arm] O2 Sat by Pulse Oximetry Oxygen Delivery Method FIO2% 07/31/22 16:52 07/31/22 16:55 07/31/22 16:55 Temperature Pulse Rate 120 H Pulse Rate [Left Brachial] Respiratory Rate 22 Blood Pressure 168/67 168/125 Blood Pressure [Right Arm] O2 Sat by Pulse Oximetry Oxygen Delivery Method FIO2% 07/31/22 16:58 07/31/22 16:58 07/31/22 17:00 Temperature Pulse Rate 119 H Pulse Rate [Left Brachial] Respiratory Rate 25 H Blood Pressure 145/53 129/58 Blood Pressure [Right Arm] O2 Sat by Pulse Oximetry Oxygen Delivery Method FIO2% 07/31/22 17:00 07/31/22 17:02 07/31/22 17:02 Temperature Pulse Rate 120 H 121 H Pulse Rate [Left Brachial] Respiratory Rate 28 H 27 H Blood Pressure 128/61 Blood Pressure [Right Arm] O2 Sat by Pulse Oximetry Oxygen Delivery Method FIO2% 07/31/22 17:15 07/31/22 17:16 07/31/22 17:16 Temperature Pulse Rate 122 H 122 H Pulse Rate [Left Brachial] Respiratory Rate 33 H 32 H Blood Pressure 106/59 Blood Pressure [Right Arm] O2 Sat by Pulse Oximetry 97 97 Oxygen Delivery Method Mechanical Ventilator FIO2% 100 07/31/22 17:00 07/31/22 18:00 07/31/22 19:00 Temperature Pulse Rate Pulse Rate [Left Brachial] 120 H 122 H Respiratory Rate 37 H 36 H Blood Pressure Blood Pressure [Right Arm] 128/61 100/53 O2 Sat by Pulse Oximetry 99 94 L Oxygen Delivery Method Mechanical Ventilator Mechanical Ventilator FIO2% 100 07/31/22 19:00 07/31/22 19:00 07/31/22 20:06 Temperature Pulse Rate Pulse Rate [Left Brachial] 118 H Respiratory Rate 38 H 38 H Blood Pressure Blood Pressure [Right Arm] 92/46 O2 Sat by Pulse Oximetry 85 L Oxygen Delivery Method Mechanical Ventilator Mechanical Ventilator FIO2% 100 100 07/31/22 20:00 07/31/22 20:26 07/31/22 21:00 Temperature 101.2 F H 101.5 F H Pulse Rate Pulse Rate [Left Brachial] 112 H 113 H Respiratory Rate 35 H 41 H Blood Pressure Blood Pressure [Right Arm] 112/75 130/50 O2 Sat by Pulse Oximetry 85 L 86 L Oxygen Delivery Method Mechanical Ventilator Mechanical Ventilator Mechanical Ventilator FIO2% 100 100 100 Labs: Laboratory Last Values WBC 23.4 X10^3/uL (3.6-10.0) H 07/31/22 16:45 RBC 2.69 X10^6/uL (3.5-5.4) L 07/31/22 16:45 Hgb 7.9 g/dL (12.0-16.0) L 07/31/22 16:45 Hct 24.4 % (36.0-47.0) L 07/31/22 16:45 MCV 90.7 fL (80.0-100.0) 07/31/22 16:45 MCH 29.4 pg (27.0-34.0) 07/31/22 16:45 MCHC 32.4 g/dL (33.0-35.0) L 07/31/22 16:45 RDW 22.4 % (11.6-16.5) H 07/31/22 16:45 Plt Count 44 X10^3/uL (150.0-450.0) L 07/31/22 16:45 Plt Count Comment Decreased (ADEQUATE) A 07/31/22 16:45 MPV 8.1 fL (7.4-11.0) 07/31/22 16:45 Neut % (Auto) 63.7 % (42.0-75.0) 07/31/22 16:45 Lymph % (Auto) 32.1 % (21.0-51.0) 07/31/22 16:45 [place] % (Auto) 3.8 % (0.0-13.0) 07/31/22 16:45 Eos % (Auto) 0.1 % (0.9-2.9) L 07/31/22 16:45 Baso % (Auto) 0.3 % (0.2-1.0) 07/31/22 16:45 Neut # (Auto) 14.9 x10^3/uL (2.2-4.8) H 07/31/22 16:45 Lymph # (Auto) 7.5 X10^3/uL (1.3-2.9) H 07/31/22 16:45 Edmunds # (Auto) 0.9 x10^3/uL (0.3-0.8) H 07/31/22 16:45 Eos # (Auto) 0.0 x10^3/uL (0.0-0.2) 07/31/22 16:45 Baso # (Auto) 0.1 X10^3/uL (0.0-0.1) 07/31/22 16:45 Absolute Nucleated RBC 4.1 /100WBC 07/31/22 16:45 Total Counted 100 07/31/22 16:45 Neutrophils % (Manual) 71 % (39-76) 07/31/22 16:45 Band Neutrophils % 3 % (0-10) 07/31/22 16:45 Lymphocytes % (Manual) 24 % (13-43) 07/31/22 16:45 Monocytes % (Manual) 2 % (4-9) L 07/31/22 16:45 Metamyelocytes % 1 07/31/22 04:12 Myelocytes % 1 07/30/22 18:52 Nucleated RBCs 11 07/31/22 16:45 Smudge Cells Few 07/31/22 04:12 Toxic Granulation noted 07/31/22 16:45 Giant Platelets Rare 07/31/22 04:12 Plt Morphology Comment Normal (NORMAL) 07/31/22 16:45 RBC Morphology Abnormal (NORMAL) A 07/31/22 16:45 Dimorphic RBCs Slight 07/31/22 04:12 Basophilic Stippling Noted 07/31/22 12:05 Anisocytosis 2+ A 07/31/22 16:45 [place] Cells Slight A 07/31/22 04:12 Schistocytes Slight A 07/31/22 04:12 PT 16.5 SECONDS (11.8-14.3) 07/30/22 11:26 INR Target Range - 07/30/22 11:26 INR 1.38 (0.8-1.3) H 07/30/22 11:26 APTT 106.6 SECONDS (22.9-36.5) H 07/31/22 16:45 PTT Comment - 07/31/22 16:45 Sample Site Rb 07/31/22 17:10 ABG pH 6.990 (7.35-7.45) L* 07/31/22 17:10 ABG pCO2 40.0 mmHg (35.0-45.0) 07/31/22 17:10 ABG pO2 91.0 mmHg (80.0-100.0) 07/31/22 17:10 ABG HCO3 9.6 mmol/L (22-26) L* 07/31/22 17:10 ABG O2 Saturation 91.0 % (90-100) 07/31/22 17:10 ABG Base Excess -21.2 mmol/L (-2.0-2.0) L 07/31/22 17:10 Alex Test Na 07/31/22 17:10 A-a Gradient 572.0 mmHg 07/31/22 17:10 FiO2 100.0 07/31/22 17:10 Blood Gas Comments Pt melanie well cdn 07/31/22 17:10 Sodium 144 mmol/L (136-145) 07/31/22 16:45 Sodium Cancelled 07/31/22 16:45 Corrected Sodium 147 mmol/L (136-145) H 07/31/22 16:45 Corrected Sodium Cancelled 07/31/22 16:45 Potassium 6.1 mmol/L (3.5-5.1) H* 07/31/22 16:45 Potassium Cancelled 07/31/22 16:45 Chloride 111 mmol/L (98-107) H 07/31/22 16:45 Chloride Cancelled 07/31/22 16:45 Carbon Dioxide 11.1 mmol/L (21-32) L* 07/31/22 16:45 Carbon Dioxide Cancelled 07/31/22 16:45 BUN 26 mg/dL (7-18) H 07/31/22 16:45 BUN Cancelled 07/31/22 16:45 Creatinine 2.77 mg/dL (0.55-1.02) H 07/31/22 16:45 Creatinine Cancelled 07/31/22 16:45 Est GFR (MDRD) Af Amer 23 (>60) L 07/31/22 16:45 Est GFR (MDRD) Af Amer Cancelled 07/31/22 16:45 Est GFR (MDRD) Non-Af 19 (>60) L 07/31/22 16:45 Est GFR (MDRD) Non-Af Cancelled 07/31/22 16:45 Glucose 219 mg/dL (65-99) H 07/31/22 16:45 Glucose Cancelled 07/31/22 16:45 Calcium 5.6 mg/dL (8.5-10.1) L* 07/31/22 16:45 Calcium Cancelled 07/31/22 16:45 Calcium Cancelled 07/31/22 16:45 Corrected Calcium 7.8 mg/dL (8.5-10.1) L 07/31/22 16:45 Magnesium Cancelled 07/31/22 16:45 Total Bilirubin 0.30 mg/dL (0.2-1.0) 07/31/22 16:45 AST 2302 Units/L (15-37) H 07/31/22 16:45 ALT 1397 Units/L (12-78) H 07/31/22 16:45 Alkaline Phosphatase 59 Units/L (46-116) 07/31/22 16:45 Creatine Kinase > 67588 Units/L (26-192) H 07/31/22 16:45 Creatine Kinase Cancelled 07/31/22 16:45 Troponin I High Sens 1423.6 ng/L (4.0-60.0) H* 07/31/22 16:45 Troponin I High Sens Cancelled 07/31/22 16:45 Troponin I High Sens Cancelled 07/31/22 16:45 Total Protein 2.9 g/dL (6.4-8.2) L 07/31/22 16:45 Albumin 1.2 g/dL (3.4-5.0) L 07/31/22 16:45 Globulin 1.7 g/dL (2.5-4.5) L 07/31/22 16:45 Albumin/Globulin Ratio 0.7 Ratio (1.1-2.1) L 07/31/22 16:45 Blood Type Cancelled 07/30/22 07:29 Antibody Screen Cancelled 07/30/22 07:29 Crossmatch See Detail 07/30/22 07:29 Reason For Visit: OCCLED INFRA RENAL AORTA COVERED TO RUPTURED Discharge Date Discharge Date: 07/31/22 Discharge Diagnosis All Active Problems (Updated 07/30/22 @ 12:03 by Eliezer Melton) Other arterial embolism and thrombosis of abdominal aorta (Acute) Hydronephrosis of left kidney (Acute) Pleurisy (Acute) Chest wall pain (Acute) Cellulitis (Acute) Abscess (Acute) Chronic abdominal wound infection (Acute) Postoperative abdominal pain (Acute) Dependent edema (Acute) Acute hypokalemia (Acute) Diarrhea (Acute) Abdominal pain (Acute) S/P abdominal surgery, follow-up exam (Acute) History of hypokalemia (Acute) Essential hypertension (Acute) Abdominal wall abscess at site of surgical wound (Acute) Cervical strain, acute (Acute) Acute neck pain (Acute) Arthralgia of right temporomandibular joint (Acute) Right sided temporal headache (Acute) Chronic renal disease, stage 3, moderately decreased glomerular filtration rate (GFR) between 30-59 mL/min/1.73 square meter (Acute) Plan of Treatment: accepted as transfer to ICU [facility] by NGA Andrade for Dr. Neal. I spoke with NGA Andrade directly myself. I explained that vascular sugery will need to be involved and encouraged her to have the vascular surgeon supervisor agricultural education to contact me. [facility] has all of my contact information. Discharge Medications Discharge Medications: iodine Allergy (Verified 07/07/19 15:09) levofloxacin [From Levaquin] Allergy (Verified 07/07/19 15:09) morphine Allergy (Verified 07/07/19 15:09) ondansetron [From Zofran] Allergy (Verified 07/07/19 15:09) CONTINUE taking the following medications gabapentin 300 mg capsule 1 cap PO HS 07/30/22 [History] Discharge Disposition Assessment: See hospital course Discharge Plan Discharge Plan Hospital Course: 56 year old female with a significant issue of tobacco abuse who presented with difficulty walking and had no palpable lower extremity pulses. CT angiogram was done with bilateral lower extremity run-off at that time showing 75 % stenosis of the infrarenal aorta. Lexiscan stress test showed no coronary ischemia and ejection fraction of 70 % She was taken to the OR on 07/30/2022 for planned endovascular treatment of this infrarenal aortic stenosis . Aortoogram on table showed complete occlusion of the infrarenal aorta over a short segment . We were able to put a Medtronic stent graft cuff across the area of obstruction and on dilating it the post procedure aortogram showed a leak from the aorta. This was repaired with a Medtronic endovascular aoric -unilateral stent graft to the right iliac artery and femoral- femoral bypass. Aortic leak was controlled with an aortic balloon . Aortogram after placement of the graft and at the end of the case showed no further leaking from the aorta. She was taken to the ICU where she was placed on both a phenylephrine and levophed drip for hypotension.She remained on the ventilator overnight and was sedated with IV Versed drip and IV Precedex drip. She stabilized by the next morning with a stable hemoglobin of 12.8., She had received a total of 4 units PRBCs. We were able to wean her pressor agents. We weaned the Precedex and Versed drips to off and weaned her ventilator. She was on CPAP for over 1 hour with no problems and respirtory rate less than 20 . Good oxygenation on 40 % FIO2 and a negative inspiratory force of -40. She was extubated and was doing well. We continued to wean her pressor agents. She remained stable with no shortness of breath or dyspnea. She was following commands and when the nurses were changing her bed sheets she abruptly stopped breathing requiring resuscitation with ACLS protocols carried out with chest compressions, asystole treated with atropine and epinephrine. She regained a rhythm and a blood pressure > 180 mmHg . Her hemoglobin dropped to 7.9. She is being transferred to [facility] for higher level of care. Once there will probably need CT of head , chest and abdomen. She is to receive 2 more units PRBCs. She had mottling of her legs presumably from the pressor agents . She remains on the 2 pressor agents. She just spiked a fever to 101.2. Is on Ancef at this time . Patient Disposition: 05 XFER OTHER Condition: Critical Health Concerns: Post Hospitalization: new medications and changes needed to prevent readmission or further decline. Pt educated and given instructions on all concerns. Care Plan Goals: Transfer to higher level of care Plan of Treatment: accepted as transfer to ICU [facility], by NGA Andrade for Dr. Neal. I spoke with NGA Andrade directly myself. I explained that vascular sugery will need to be involved and encouraged her to have the vascular surgeon supervisor agricultural education to contact me. [facility] has all of my contact information. Assessment: See hospital course Prescription drug monitoring program results: PDMP reviewed and no concerns identified Prescriptions: No Action levothyroxine 125 mcg tablet 125 mcg PO DAILY Label Comments: TAKE 1 TABLET BY MOUTH ONCE DAILY FOR THYROID gabapentin 300 mg capsule 1 cap PO HS trazodone 150 mg Tablet 225 mg PO HS alprazolam 1 mg tablet 1 mg PO TID PRN losartan 100 mg tablet 100 mg PO QDAY atenolol 50 mg tablet 50 mg PO QDAY Orders to Discharge Patient Discharge Orders: Discharge by Transfer to Outside Facility (Routine); Ordered 07/31/22 Ordered By: Eliezer Melton Follow ups/Referrals Follow ups/Referrals: ALONDRA GARCIA [Primary Care Provider] - 1 WEEK Instructions Stand Alone Forms: Excuse From Work or School
[2022-08-01] MEDS: NEO-SYNEPHRINE INJ 30 MG in NS 500 ML IV 500 ML IV PRN ×2 (00:53→08:21)
[2022-08-01] MEDS: LEVOPHED 8 MG/250 ML IV *PREMIX 8 MG/250 ML PLAST..BAG IV PRN ×2 (00:54→08:20)
[2022-08-01] MEDS ORDERED: NS 250 ML IV 250 ML IV ONE (01:35)
[2022-08-01] MEDS ORDERED: LASIX IVP ONE ×2 (03:08→09:31)
[2022-08-01] MEDS ORDERED: NS 100 ML IV 100 ML ONE (03:15)
[2022-08-01] MEDS ORDERED: LASIX ONE ×2 (03:15)
[2022-08-01 03:52] LABS: ABG BASE EXCESS -12.1 mmol/L (-2.0-2.0)
[2022-08-01 03:53] LABS: ABG HCO3 15.7 mmol/L (22-26)
[2022-08-01 05:26] LABS: BASOPHILS # (AUTO) 0.1 X10^3/uL (0.0-0.1); BASOPHILS % (AUTO) 0.3 % (0.2-1.0); EOSINOPHILS % (AUTO) 0.1 % (0.9-2.9); HEMATOCRIT 32.5 % (36.0-47.0); LYMPHOCYTES % (AUTO) 21.7 % (21.0-51.0); MEAN CORPUSCULAR HGB CONC 34.5 g/dL (33.0-35.0); MEAN CORPUSCULAR VOLUME 86.9 fL (80.0-100.0); MEAN PLATELET VOLUME 8.6 fL (7.4-11.0); MONOCYTES # (AUTO) 1.1 x10^3/uL (0.3-0.8); MONOCYTES % (AUTO) 6.1 % (0.0-13.0); NEUTROPHILS # (AUTO) 13.4 x10^3/uL (2.2-4.8); NEUTROPHILS % (AUTO) 71.8 % (42.0-75.0); RED BLOOD COUNT 3.74 X10^6/uL (3.5-5.4); RED CELL DISTRIBUTION WIDTH 18.9 % (11.6-16.5); WHITE BLOOD COUNT 18.6 X10^3/uL (3.6-10.0)
[2022-08-01 05:41] LABS: ALBUMIN 1.4 g/dL (3.4-5.0); ALKALINE PHOSPHATASE 109 Units/L (46-116); BLOOD UREA NITROGEN 33 mg/dL (7-18); CARBON DIOXIDE 19.7 mmol/L (21-32); CHLORIDE 108 mmol/L (98-107); COR CA(FOR HYPOALB) 7.8 mg/dL (8.5-10.1); MAGNESIUM 1.9 mg/dL (2.0-2.9); SODIUM 140 mmol/L (136-145); TOTAL PROTEIN 3.6 g/dL (6.4-8.2); eGFR NON BLACK RACES 15 (>60)
--- NOTE | 2022-08-01 05:54 | RAD ---
HISTORYVENTILATOR PROTOCOLSTUDYCHEST, 1 [id number] has been improvement since yesterday. There is less opacity in the right loki thorax. Patchy areas of opacity still remain in the right middle lung, left perihilar region and medial right lung base. This could be bronchopneumonia.No pleural effusion or pneumothorax.Heart size is normal. Vascular calcifications are present compatible with atherosclerosis.Bones are unremarkable.The endotracheal tube is anatomic in position in the trachea. The enteric tube extends into the upper abdomen. Left subclavian central venous catheter is in the expected location of the superior vena cava. EKG leads are noted.IMPRESSION1. Improved bronchopneumoniaElectronically signed by: Nacho Mercado (Aug 01, 2022 05:53:40)
[2022-08-01] MEDS: ANCEF VIAL 1 GRAM IVP SCH ×2 (06:01→13:35)
[2022-08-01 06:13] LABS: ALANINE AMINOTRANSFERASE 1761 Units/L (12-78); ASPARTATE AMINO TRANSFERASE 7247 Units/L (15-37); CALCIUM 5.7 mg/dL (8.5-10.1)
[2022-08-01 06:18] LABS: HEMOGLOBIN 11.2 g/dL (12.0-16.0)
[2022-08-01 06:19] LABS: BAND NEUTROPHILS % 15 % (0-10); BURR CELLS SLIGHT; PLATELET MORPHOLOGY COMMENT NORMAL (NORMAL); SCHISTOCYTES SLIGHT; SMUDGE CELLS FEW; TARGET CELLS SLIGHT
[2022-08-01 06:20] LABS: ANISOCYTOSIS 1+
[2022-08-01] MEDS ORDERED: CALCIUM GLUCONATE IV ONE ×2 (06:34→09:00)
[2022-08-01] MEDS ORDERED: D50W ABBOJECT SYR IV ONE ×2 (06:34→14:15)
[2022-08-01] MEDS ORDERED: NS IV ONE ×2 (06:34→09:00)
[2022-08-01] MEDS ORDERED: NovoLIN R (or HumuLIN R) IV ONE ×2 (06:35→14:17)
[2022-08-01] MEDS ORDERED: NovoLIN R (or HumuLIN R) ONE ×2 (06:40→14:18)
[2022-08-01] MEDS ORDERED: KAYEXALATE SUSP PO SCH (07:00)
[2022-08-01] MEDS: DOPAMINE IV PREMIX 400 MG/250 ML 400 MG/250 ML BAG IV SCH (08:42)
[2022-08-01] MEDS: NS 1,000 ML IV 1,000 ML IV SCH ×3 (08:42→13:34)
[2022-08-01] MEDS: TYLENOL SUPP 650 MG PR PRN (09:39)
[2022-08-01] MEDS ORDERED: LASIX IVP NR (10:00)
[2022-08-01] MEDS ORDERED: SODIUM BICARBONATE 8.4% INJ ADULT ONE (10:54)
[2022-08-01] MEDS ORDERED: SODIUM BICARBONATE 8.4% INJ ADULT IVP ONE (10:54)
[2022-08-01] MEDS: LEVOPHED INJ (VIAL) 8 MG in D5W 250 ML IV 242 ML IV PRN ×2 (10:55→13:10)
[2022-08-01 11:20] LABS: ABG BASE EXCESS -16.8 mmol/L (-2.0-2.0)
[2022-08-01 11:22] LABS: ABG HCO3 14.4 mmol/L (22-26)
[2022-08-01] MEDS: LACRI-LUBE S.O.P. AFFEYE SCH (12:42)
[2022-08-01 12:56] LABS: INR 2.47 (0.8-1.3); MONOCYTES # (AUTO) 0.3 x10^3/uL (0.3-0.8)
[2022-08-01 13:04] LABS: BASOPHILS % (AUTO) 0.4 % (0.2-1.0); EOSINOPHILS % (AUTO) 0.5 % (0.9-2.9); HEMATOCRIT 25.9 % (36.0-47.0); HEMOGLOBIN 8.8 g/dL (12.0-16.0); LYMPHOCYTES # (AUTO) 3.2 X10^3/uL (1.3-2.9); LYMPHOCYTES % (AUTO) 50.2 % (21.0-51.0); MEAN CORPUSCULAR HGB CONC 33.9 g/dL (33.0-35.0); MEAN CORPUSCULAR VOLUME 88.6 fL (80.0-100.0); MEAN PLATELET VOLUME 8.3 fL (7.4-11.0); NEUTROPHILS # (AUTO) 2.8 x10^3/uL (2.2-4.8); NEUTROPHILS % (AUTO) 44.9 % (42.0-75.0); RED BLOOD COUNT 2.92 X10^6/uL (3.5-5.4)
[2022-08-01 13:10] LABS: ALKALINE PHOSPHATASE 111 Units/L (46-116); BLOOD UREA NITROGEN 38 mg/dL (7-18); CARBON DIOXIDE 19.2 mmol/L (21-32); CHLORIDE 110 mmol/L (98-107); COR CA(FOR HYPOALB) 7.9 mg/dL (8.5-10.1); CREATININE 3.91 mg/dL (0.55-1.02); SODIUM 142 mmol/L (136-145); TOTAL PROTEIN 2.8 g/dL (6.4-8.2); eGFR NON BLACK RACES 13 (>60)
[2022-08-01] MEDS ORDERED: OFIRMEV IV 1000 MG VIAL 1,000 MG/100 ML VIAL IV ONE (13:34)
[2022-08-01] MEDS ORDERED: KAYEXALATE SUSP PO ONE (14:00)
[2022-08-01] MEDS ORDERED: KAYEXALATE SUSP PO NR (14:00)
[2022-08-01 14:01] LABS: WHITE BLOOD COUNT 7.1 X10^3/uL (3.6-10.0)
[2022-08-01 14:05] LABS: ANISOCYTOSIS SLIGHT; BAND NEUTROPHILS % 2 % (0-10); PLATELET MORPHOLOGY COMMENT NORMAL (NORMAL)
[2022-08-01 14:06] LABS: BURR CELLS PRESENT; SCHISTOCYTES PRESENT
[2022-08-01 14:09] LABS: SMUDGE CELLS PRESENT
[2022-08-01 14:11] LABS: CALCIUM 5.5 mg/dL (8.5-10.1)
[2022-08-01 14:12] LABS: ALANINE AMINOTRANSFERASE 1242 Units/L (12-78); ASPARTATE AMINO TRANSFERASE 5199 Units/L (15-37)
[2022-08-01] MEDS ORDERED: D50W ABBOJECT SYR ONE (14:17)
[2022-08-01] MEDS ORDERED: KAYEXALATE SUSP ONE (14:24)
[2022-08-01 15:19] VITALS: BP 57/25
--- NOTE | 2022-08-01 15:36 | DR.OPNOTE ---
OP NOTE Pre-Op Diagnosis: 75 % stenosis infrarenal aorta Post-Op Diagnosis: completely occluded infrarenal aorta over short segment Procedure Date Date Of Procedure: 07/30/22 Procedure: PROCEDURE: Endovascular stent repair of infrarenal aortic occlusion complicated by leak of aorta after balloon dilatation treated with endovascular aorto-uniiliac covered stent graft ( right iliac artery) and femoral -femoral bypass NARRATIVE : This patient was taken to the OR suite and placed in the supine position. Endotracheal anesthesia induced. Both groins and the abdomen prepped and draped in sterile fashion. Time out for the procedure obtained . Vertical incision was made in the right groin with a number 15 knife blade. . This dissection was difficult secondary to the patient's morbid obesity . Sharp dissection carried down and identified the common femoral artery and vessel loops placed proximally and distally around the right common femoral artery . A purse string suture of 5-0 Prolene placed in the anterior portion of the common femoral artery. 16 gauge needle placed though the purse string and a 0.012 in guide wire placed. Micro sheath place over the guide wire into the right femoral artery . Small guidewire exchanged for a 0.035 inch Advantage glide wire and micro sheath exchange for a 5 Fr vascular sheath sheath . Patient was given 5000 units of intravenous heparin. Ultrasound used to identify the left common femoral artery and ultrasound used to guide puncture of the left common femoral artery . A 0.012 inch guide wire placed . Small guidewire exchange for a 0.035 inch Advantage glide wire and the micro sheath exchanged for a 5 Fr vascular sheath. Arteriogram carried out through the right femoral artery sheath showing the distal aorta now to be completely occluded approximately 4 cm above the iliac bifurcation. With some difficulty both guide wires were able to [place] this area and a Omni catheter place above the area of concern and aortogram carried out showing aorta normal in size above this area of obstruction . We readied the Endurant 23x 23 x 49 mm cuff graft . The device was exchanged over the wire on the right side after removing the 5 Fr sheath . Previous aortogram had shown the takeoff of both renal arteries and these were marked on the screen. The device was positioned just below the renal arteries and deployed . A RELIANT low compliance balloon was used to dilate the graft and then removed .Delivery device removed from the right femoral artery and exchanged for an 18 [place] sheath. Aortogram carried out through the left groin with the Omni catheter showing extravasation in the area of the graft . The Omni catheter on the left removed and replaced with the reliant balloon which was taken above the area of contrast extravasation and inflated to control ble eding. Over the wire in the right groin we placed a 23 mm by 14 mm by 102 mm aorto-uniiliac Endurant covered graft, positioned it at just below the takeoff of the renal arteries and deployed it . Repeat aortogram showed good placement and no further leak. This was repeated later and still showed no leak .Incision made vertically in the left groin centered over the sheath and sharp dissection carried down to the left common femoral artery and it was exposed and vessel loops placed proximally and distally. A 6mm ringed Gortex graft was tunneled between the two groin incisions subcutaneously over the pubic tubercle. The left femoral artery clamped proximally and the back bleeding controlled with the distal vessel loop . The left femoral artery opened on either side of the puncture site with Pott's scissors. 6 mm graft fashioned for anastomosis and anastomosis carried out with running 5-0 Prolene suture. The left femoral artery unclamped and back bleeding allowed through the graft. There was no obvious leak of the anastomosis. The left femoral artery was then ligated proximal to the anastomosis to prevent reflux into the aorta and possible leak. The right femoral artery was clamped as the 18 Fr sheath removed. Pott's Scissors used to open the right femoral artery on either side of the area where the sheath had been placed . The graft fashioned for anastomosis and an astomosis performed using 5-0 Prolene running suture. All clamps were removed and the patient had biphasic waveforms in each femoral artery. Each groin incision closed in 2 layers of running 3-0 Vicryl and the skin of each groin closed with skin giselle. Patient remained intubated and was transferred to the ICU. Type of Anesthesia: General Anesthetic w/ETT Findings: completely occluded infrarenal over short segment Type of Fluids Used:: Lactated Ringers (4000 cc) and Blood and Blood Products (2 units PRBCs) EBL: 50 cc loss b/l femoral artery exposure, Guess of 700 cc of intra-abdominal Hardware: Medtronic cuff,23x23x 49 mm, Medtronic aorto-iliac endograft( right iliac) , 6 mm ringed Gortex graft Complications:: Leak of distal aorta after balloon dilation of cuff repaired with aorto-uniliac endograft( right iliac artery) and femoral-femoral graft. Needle/Sponge Count:: correct Disposition/Condition: Patient remained intubated and taken to ICU
[2022-08-01] MEDS ORDERED: SNACK - Diabetic Appropriate PO SCH (20:00)
== END 2022-08-01 17:23 | disposition expired | DRG 252 ==
LOC: MED/SURG
PROVIDERS: ADMIT Surgery; ATTEND Surgery